=== PATIENT | male | born 1945 | race Caucasian/White ===

== ENCOUNTER 2021-09-24 12:31 | Outpatient (REF) | payer MEDICARE, BC, SELFPAY ==
[2021-09-24 14:03] LABS: Alanine Aminotransferase 26 U/L (0-40); Alkaline Phosphatase 58 U/L (39-117); Aspartate Amino Transferase 19 U/L (5-37); Bilirubin Direct 0.6 mg/dL (0.0-0.5); Bilirubin Total 1.8 mg/dL (0.0-1.0); Blood Urea Nitrogen 21 mg/dL (9-16); Estimated Glomerular Filt Rate > 60; Lipase 13 U/L (8-78)
[2021-09-26 09:12] LABS: Carbohydrate Antigen 19-9 12 U/mL (<34)
== END 2021-09-24 12:32 | disposition home or self-care (01) ==
LOC: HO.10HDL 12:31
PROVIDERS: Visit Provider Internal Medicine
DX: Q45.3 Other congenital malformations of pancreas and pancreatic duct (principal); R10.13 Epigastric pain
CPT/HCPCS: 36415; 80076; 82565; 83690; 84520; 86301

== ENCOUNTER 2021-10-12 10:04 | Outpatient (REF) | payer MEDICARE, BC, SELFPAY ==
[2021-10-12 10:09] LABS: MANUAL DIFF FLAG NO
[2021-10-12 10:31] LABS: Basophils Absolute Auto 0.1 X10*3/uL (0.0-0.2); Basophils Percent Auto 0.8 % (0-2); Eosinophils Absolute Auto 0.2 X10*3/uL (0.0-0.4); Eosinophils Percent Auto 2.5 % (0-4); Hematocrit 43.7 % (42.0-52.0); Hemoglobin 14.4 g/dl (14.0-18.0); Imm Gran Abs Auto 0.04 X10*3/uL (0.00-0.03); Imm Gran Pct Auto 0.5 % (0.0-0.4); Lymphocytes Percent Auto 27.6 % (20-40); Mean Corpuscular Hemoglobin 31.2 pg (27.0-33.0); Mean Corpuscular Volume 94.8 fL (80.0-98.0); Mean Platelet Volume 11.7 fL (9.4-12.4); Monocytes Absolute Auto 0.7 X10*3/uL (0.1-1.2); Monocytes Percent Auto 9.7 % (2-11); Neutrophils Absolute Auto 4.3 x10*3/uL (2.0-8.3); Neutrophils Percent Auto 58.9 % (45-73); Platelet Count 194 X10*3/uL (160-400); Red Blood Count 4.61 X10*6/uL (4.60-5.80); White Blood Count 7.3 X10*3/uL (4.8-10.8)
[2021-10-12 10:34] LABS: Appearance Urine CLEAR; Color Urine YELLOW; Glucose Urine UA NEG (NEG); Leukocyte Esterase Urine 1+ (NEG); Nitrite Urine POS (NEG); PH 7.5 (5.0-8.0); Specific Gravity - Urine 1.015 (1.005-1.025); Urine Blood NEG (NEG); Urine Ketones NEG (NEG); Urine Protein NEG (NEG-TRACE)
[2021-10-12 10:49] LABS: Estimated Average Glucose 143 mg/dL; Hemoglobin A1c % 6.6 %
[2021-10-12 10:54] LABS: Creatinine Urine 88.32 mg/dL; Microalbum/Creatinine Ratio Ur 24.9 ug/mg cr
[2021-10-12 10:56] LABS: Alanine Aminotransferase 26 U/L (0-40); Alkaline Phosphatase 59 U/L (39-117); Anion Gap 12 (12-20); Aspartate Amino Transferase 16 U/L (5-37); Blood Urea Nitrogen 17 mg/dL (9-16); Calcium 9.6 mg/dL (8.4-10.2); Carbon Dioxide 28 mmol/L (22-29); Chloride 102 mmol/L (96-108); Cholesterol 148 mg/dL; Estimated Glomerular Filt Rate > 60; Glucose Fasting 155 mg/dL (60-99); HDL Cholesterol 46 mg/dL; LDL Cholesterol Calculated 78 mg/dl; Potassium 4.3 mmol/L (3.3-5.1); Sodium 138 mmol/L (135-145); Triglycerides 122 mg/dL
[2021-10-12 11:12] LABS: PSA,Total (Free>4and<10) 4.64 ng/mL (0.00-4.00)
[2021-10-12 11:14] LABS: RBC Urine 0 /HPF (0)
[2021-10-12 11:15] LABS: Bacteria Urine 2+ /LPF; Squamous Epithelial Cell Urine TRACE /LPF
[2021-10-15 11:43] LABS: Free Prostate Spec Ag 1.2 ng/mL; Percent Free Prostate Spec Ag 26 % (calc) (>25); Prostate Specific Ag Total 4.6 ng/mL (< OR = 4.0)
== END 2021-10-12 10:05 | disposition home or self-care (01) ==
LOC: HO.LNP 10:04
PROVIDERS: Visit Provider Internal Medicine
DX: I10 Essential (primary) hypertension (principal); E11.9 Type 2 diabetes mellitus without complications; Z12.5 Encounter for screening for malignant neoplasm of prostate
CPT/HCPCS: 80053; 80061; 81001; 82043; 83036; 84153; 84154; 85025

== ENCOUNTER 2022-10-17 11:09 | Outpatient (REF) | payer MEDICARE, BC, SELFPAY ==
[2022-10-17 11:12] LABS: MANUAL DIFF FLAG NO
[2022-10-17 12:46] LABS: Basophils Absolute Auto 0.1 X10*3/uL (0.0-0.2); Basophils Percent Auto 1.1 % (0-2); Eosinophils Absolute Auto 0.4 X10*3/uL (0.0-0.4); Eosinophils Percent Auto 4.8 % (0-4); Hematocrit 44.5 % (42.0-52.0); Hemoglobin 14.7 g/dl (14.0-18.0); Imm Gran Abs Auto 0.05 X10*3/uL (0.00-0.03); Imm Gran Pct Auto 0.7 % (0.0-0.4); Lymphocytes Absolute Auto 2.3 X10*3/uL (1.2-4.9); Mean Corpuscular Hemoglobin 30.9 pg (27.0-33.0); Mean Corpuscular Volume 93.5 fL (80.0-98.0); Mean Platelet Volume 11.6 fL (9.4-12.4); Monocytes Absolute Auto 0.6 X10*3/uL (0.1-1.2); Neutrophils Absolute Auto 3.9 x10*3/uL (2.0-8.3); Neutrophils Percent Auto 53.4 % (45-73); Platelet Count 168 X10*3/uL (160-400); Red Blood Count 4.76 X10*6/uL (4.60-5.80); Red Cell Distribution Width 13.2 % (11.0-16.0); White Blood Count 7.3 X10*3/uL (4.8-10.8)
[2022-10-17 13:06] LABS: Estimated Average Glucose 137 mg/dL; Hemoglobin A1c % 6.4 %
[2022-10-17 13:15] LABS: Appearance Urine Clear; Color Urine Yellow; Glucose Urine UA Negative (Negative); Leukocyte Esterase Urine Moderate (2+) (Negative); Nitrite Urine Positive (Negative); Specific Gravity - Urine 1.015 (1.005-1.025); UMIC TRIGGER UACC YES; Urine Blood Negative (Negative); Urine Ketones Negative (Negative); Urine Protein Negative (Neg-Trace)
[2022-10-17 13:18] LABS: Bacteria Urine 3+ (None Seen); Hyaline Casts Urine 0-2 /LPF (0-2); Squamous Epithelial Cell Urine 0-2 /HPF (0-2); UACC Culture Trigger YES; WBC Urine 21-50 /HPF (0-5)
[2022-10-17 13:22] LABS: Alanine Aminotransferase 19 U/L (0-40); Albumin Level 3.9 g/dL (3.5-5.0); Alkaline Phosphatase 62 U/L (39-117); Anion Gap 15 (12-20); Aspartate Amino Transferase 19 U/L (5-37); Bilirubin Total 2.6 mg/dL (0.0-1.0); Blood Urea Nitrogen 17 mg/dL (9-16); Calcium 9.3 mg/dL (8.4-10.2); Carbon Dioxide 26 mmol/L (22-29); Chloride 105 mmol/L (96-108); Cholesterol 177 mg/dL; Estimated Glomerular Filt Rate 59; Glucose Fasting 150 mg/dL (60-99); HDL Cholesterol 38 mg/dL; LDL Cholesterol Calculated 105 mg/dl; Potassium 4.2 mmol/L (3.3-5.1); Sodium 142 mmol/L (135-145); Triglycerides 170 mg/dL
[2022-10-17 13:25] LABS: Creatinine Urine 105.05 mg/dL; Microalbum/Creatinine Ratio Ur 21.8 ug/mg cr
[2022-10-17 13:36] LABS: PSA,Total (Free>4and<10) 2.86 ng/mL (0.00-4.00)
== END 2022-10-17 11:10 | disposition home or self-care (01) ==
LOC: HO.LNP 11:09
PROVIDERS: Visit Provider Internal Medicine
DX: Z13.89 Encounter for screening for other disorder (principal)
CPT/HCPCS: 80053; 80061; 81001; 82043; 83036; 84153; 85025; 87086; 87088; 87186

== ENCOUNTER 2022-10-24 15:44 | Outpatient (REF) | payer MEDICARE, BC, SELFPAY ==
[2022-10-24 15:56] LABS: Appearance Urine Clear; Color Urine Yellow; Glucose Urine UA Negative (Negative); Leukocyte Esterase Urine Moderate (2+) (Negative); Nitrite Urine Positive (Negative); UMIC TRIGGER UACC YES; Urine Blood Negative (Negative); Urine Ketones Negative (Negative); Urine Protein Negative (Neg-Trace)
[2022-10-24 16:18] LABS: Bacteria Urine Trace (None Seen); Hyaline Casts Urine 0-2 /LPF (0-2); RBC Urine 0-2 /HPF (0-2); Squamous Epithelial Cell Urine 0-2 /HPF (0-2); UACC Culture Trigger YES
== END 2022-10-24 15:45 | disposition home or self-care (01) ==
LOC: HO.LNP 15:44
PROVIDERS: Visit Provider Internal Medicine
DX: R31.9 Hematuria, unspecified (principal)
CPT/HCPCS: 81001; 87086; 87088; 87186

== ENCOUNTER 2022-11-25 10:33 | Outpatient (REF) | payer MEDICARE, BC, SELFPAY ==
[2022-11-25 11:08] LABS: Appearance Urine Clear; Color Urine Yellow; Glucose Urine UA Negative (Negative); Leukocyte Esterase Urine Small (1+) (Negative); Nitrite Urine Positive (Negative); Specific Gravity - Urine 1.015 (1.005-1.025); UMIC TRIGGER UACC YES; Urine Blood Negative (Negative); Urine Ketones Negative (Negative); Urine Protein Negative (Neg-Trace)
[2022-11-25 11:14] LABS: Bacteria Urine 1+ (None Seen); Hyaline Casts Urine 0-2 /LPF (0-2); RBC Urine 0-2 /HPF (0-2); Squamous Epithelial Cell Urine 0-2 /HPF (0-2); UACC Culture Trigger YES
== END 2022-11-25 10:34 | disposition home or self-care (01) ==
LOC: HO.LNP 10:33
PROVIDERS: Visit Provider Internal Medicine
DX: R31.9 Hematuria, unspecified (principal)
CPT/HCPCS: 81001; 87086; 87088; 87186

== ENCOUNTER 2022-12-27 11:51 | Outpatient (REF) | payer MEDICARE, BC, SELFPAY ==
[2022-12-27 14:12] LABS: Lipase 10 U/L (8-78)
[2022-12-27 17:36] LABS: Amylase 55 U/L (28-100)
[2022-12-30 17:58] LABS: Carbohydrate Antigen 19-9 16 U/mL (<34)
== END 2022-12-27 11:52 | disposition home or self-care (01) ==
LOC: HO.10HDL 11:51
PROVIDERS: Visit Provider Internal Medicine
DX: Q45.3 Other congenital malformations of pancreas and pancreatic duct (principal); D49.0 Neoplasm of unspecified behavior of digestive system
CPT/HCPCS: 36415; 82150; 83690; 86301

== ENCOUNTER 2023-03-03 14:24 | Outpatient (AMB) | payer MEDICARE, BC, SELFPAY ==
--- NOTE | 2023-03-03 14:27 | MHC.OFFVIS ---
Intake Vital Signs 03/03/23 14:49 Height 5 ft 10 in Weight 177 lb BMI 25.4 BP 160/80 H Blood Pressure Location Lt brachial Position Sitting Intake Visit Reasons: bleeding hemorrhoids Intake Note: Patient is seen in office for evaluation and treatment of bleeding hemorrhoids. 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 Chemical Cleaning Required: No Accompanied by: Family/Other Allergies cefaclor [From Ceclor] Allergy (Unknown, Unverified 03/03/23 14:41) RASH Cephalosporins [CEPHALOSPORINS] Allergy (Unknown, Unverified 03/03/23 14:41) UNKNOWN ciprofloxacin [Cipro] Allergy (Unknown, Verified 03/03/23 14:41) Unknown erythromycin base [Erythromycin Base] Allergy (Unknown, Unverified 03/03/23 14:41) RASH mold Allergy (Unknown, Unverified 03/03/23 14:41) UNKNOWN naproxen [From Aleve] Allergy (Unknown, Unverified 03/03/23 14:41) RASH nystatin [NYSTATIN] Allergy (Unknown, Unverified 03/03/23 14:41) UNKNOWN pantoprazole [Protonix] Allergy (Unknown, Verified 03/03/23 14:41) Unknown penicillin V Allergy (Unknown, Verified 03/03/23 14:41) Unknown Sulfa (Sulfonamide Antibiotics) [Sulfa (Sulfonamides)] Allergy (Unknown, Unverified 03/03/23 14:41) RASH tetracycline [Tetracycline] Allergy (Unknown, Unverified 03/03/23 14:41) RASH tree and shrub pollen [TREES] Allergy (Unknown, Unverified 03/03/23 14:41) UNKNOWN vasopressin [VASOPRESSIN] Allergy (Unknown, Unverified 03/03/23 14:41) UNKNOWN weed pollen Allergy (Unknown, Unverified 03/03/23 14:41) UNKNOWN chlordiazepoxide [From Librium] Adverse Reaction (Unknown, Unverified 03/03/23 14:41) HALLUCINATIONS ceclor Allergy (Unknown, Uncoded 03/03/23 14:41) Unknown DANDER Allergy (Unknown, Uncoded 03/03/23 14:41) UNKNOWN DUST Allergy (Unknown, Uncoded 03/03/23 14:41) UNKNOWN Erythromycin Allergy (Unknown, Uncoded 03/03/23 14:41) Unknown From Aleve Allergy (Unknown, Uncoded 03/03/23 14:41) UNKNOWN From Librium Allergy (Unknown, Uncoded 03/03/23 14:41) UNKNOWN Librium Allergy (Unknown, Uncoded 03/03/23 14:41) Unknown trees, weeds, dust, dander, mo Allergy (Unknown, Uncoded 03/03/23 14:41) Unknown Medication List - Last Reconciled 03/03/23 by Rick Terrazas MD alfuzosin ER 10 mg PO DAILY omeprazole 20 mg PO DAILY valsartan 160 mg PO DAILY HPI bleeding hemorrhoids HPI Details 78-year-old male referred for hemorrhoids. He says that he often has some ?leakage? from his anus after bowel movements. He says he really does not have any bleeding from his hemorrhoids most of the time. He says he frequently has loose stools. However, he does state that he once in a while has ?hard stools?. He says that whenever this happens, he would notice small amounts of blood on wiping. He says that sometimes he would not a bowel movement in 3-4 days. He denies any pain with this bowel movements or with his anus. [facility] Medical History (Updated 03/03/23 @ 14:58 by Rick Terrazas MD) Hypertension Internal and external bleeding hemorrhoids Surgical History (Updated 03/03/23 @ 14:42 by JERILYN Quezada) History of back surgery History of colonoscopy History of tonsillectomy Family History (Updated 03/03/23 @ 14:44 by JERILYN Quezada) Mother Breast cancer Father Prostate cancer Social History Alcohol intake: never Patient Tobacco Use Status: Never used Tobacco Review of Systems Const Denies chills and Denies fever(s) Card Denies chest pain, Denies dyspnea and Denies dyspnea on exertion Resp Denies cough, Denies dyspnea and Denies dyspnea on exertion GI Reports hematochezia, Denies change in bowel habits and Reports constipation Denies hematuria and Reports difficulty urinating Musc Denies back pain, Reports arthralgias and Reports limited range of motion Neuro Denies focal weakness and Denies convulsions Psych Denies depression and Denies mood swings Physical Exam Vital Signs: Last Vital Signs BP 190/100 H 03/03/23 14:49 BMI result Body Mass Index 25.4 Const General: comfortable and no acute distress Orientation/consciousness: patient oriented x3 Neck Neck: Yes no lymphadenopathy Resp Auscultation: clear to auscultation bilaterally Cardio Rhythm: regular rhythm GI Other: Rectal exam does not show any large external hemorrhoids, no perianal lesions, anoscopy as described Palpation (GI): Soft to palpation, nontender and no guarding Neuro General: patient oriented x3 Office Procedures Anoscopy He was in damian-knife position. The anoscope was gently inserted. A full examination of the anal canal was done. He had a mixed internal external hemorrhoidal column on the left side which appears to be bulky but with no redness or bleeding. There were no other lesions. There was no induration on digital exam. There was no fissure or ulceration [id number] Assessment & Plan Assessment & Plan (1) Internal and external bleeding hemorrhoids: Code(s): K64.4 - Residual hemorrhoidal skin tags; K64.8 - Other hemorrhoids Plan: He describes periodic passage of bright blood per rectum whenever he is constipated. His anoscopy showed internal and external hemorrhoids with no active bleeding at this time. There were no other lesions. I will prescribe him Metamucil. I will see him again in the office in about 2-3 months to see how is doing. I would not recommend proceeding with hemorrhoidectomy at this time in view of his minimal symptoms. Coding Level of Care Code New Pt Level 3 (05686) Diagnoses Internal and external bleeding hemorrhoids K64.4; K64.8 CPT Codes Details - CPT: 10903-[id number] ([id number])
[2023-03-03 14:49] VITALS: BP 160/80; BMI 25.4
== END 2023-03-03 14:58 | disposition home or self-care (01) ==
PROVIDERS: PCP Internal Medicine; Referring Provider Internal Medicine; Visit Provider Surgery
DX: K64.4 Residual hemorrhoidal skin tags (principal); K64.8 Other hemorrhoids
CPT/HCPCS: 46600; 99203

== ENCOUNTER → 2023-03-03 14:24 | Outpatient (BNVA) | payer MEDICARE, BC, SELFPAY | PROVIDERS: PCP Internal Medicine; Referring Provider Internal Medicine; Visit Provider Surgery | DX: K64.8 Other hemorrhoids (principal); K64.4 Residual hemorrhoidal skin tags | CPT/HCPCS: 46600; 99202 ==